=== PATIENT | male | born 1955 | race Caucasian/White ===

== ENCOUNTER 2017-05-19 09:07 | Outpatient (RCR) | payer OTHER ==
[~2017-05-19 09:07] MED LIST: ALLOPURINOL300 MG PO; ATENOLOL25 MG PO; AVAPRO
[2017-08-15] MEDS ORDERED: NORVASC 5MG5 MG/TAB PO (13:08)
[2017-08-15] MEDS ORDERED: ZYLOPRIM 100MG100 MG PO (13:08)
[2017-08-15] MEDS ORDERED: COZAAR100 MG PO (13:09)
[2017-08-15] MEDS ORDERED: GLUCOPHAGE500 MG/TAB PO (13:10)
[2017-08-15] MEDS ORDERED: BYSTOLIC20 MG PO (13:10)
[2017-08-15] MEDS ORDERED: ZOLOFT 50MG50 MG PO (13:11)
[2017-08-15] MEDS ORDERED: ZOCOR 10MG10 MG PO (13:12)
[2017-08-15] MEDS ORDERED: SINGULAIR 110 MG/TAB PO (13:13)
[2017-08-15] MEDS ORDERED: MULTIPLE VITAMI1 CAP PO (13:13)
[2017-08-15] MEDS ORDERED: ASPIRIN 81M81 MG/TA2 PO (13:15)
[2017-08-15] MEDS ORDERED: ALEVE 220MG220 MG PO (13:16)
[2017-08-15] MEDS ORDERED: TYLENOL 8 HR PO (13:17)
== END 2017-08-14 | disposition home or self-care (01) ==
LOC: WSOH
DX: S09.90XA Unspecified injury of head, initial encounter (principal); F07.81 Postconcussional syndrome; E11.9 Type 2 diabetes mellitus without complications; I10 Essential (primary) hypertension; W22.8XXA Striking against or struck by other objects, initial encounter; Y99.0 Civilian activity done for income or pay; Z79.84 Long term (current) use of oral hypoglycemic drugs; Z79.899 Other long term (current) drug therapy

== ENCOUNTER → 2017-07-20 | Outpatient (CLI) | payer OTHER | LOC: COL.RAD 08:03 | DX: N20.0 Calculus of kidney (principal); M46.86 Other specified inflammatory spondylopathies, lumbar region; M51.26 Other intervertebral disc displacement, lumbar region | CPT/HCPCS: Q9967 ==

== ENCOUNTER 2017-08-15 12:02 | Day surgery (SDC) | payer OTHER ==
[~2017-08-15] VITALS: Ht 177.8 cm; Wt 121.1 kg
[2017-08-15 12:22] VITALS: BP 137/91; PULSE 57; TEMP 98.3
[2017-08-15] MEDS ORDERED: ZYLOPRIM 100MG100 MG PO (13:08)
[2017-08-15] MEDS ORDERED: NORVASC 5MG5 MG/TAB PO (13:08)
[2017-08-15] MEDS ORDERED: COZAAR100 MG PO (13:09)
[2017-08-15] MEDS ORDERED: GLUCOPHAGE500 MG/TAB PO (13:10)
[2017-08-15] MEDS ORDERED: BYSTOLIC20 MG PO (13:10)
[2017-08-15] MEDS ORDERED: ZOLOFT 50MG50 MG PO (13:11)
[2017-08-15] MEDS ORDERED: ZOCOR 10MG10 MG PO (13:12)
[2017-08-15] MEDS ORDERED: SINGULAIR 110 MG/TAB PO (13:13)
[2017-08-15] MEDS ORDERED: MULTIPLE VITAMI1 CAP PO (13:13)
[2017-08-15] MEDS ORDERED: ASPIRIN 81M81 MG/TA2 PO (13:15)
[2017-08-15] MEDS ORDERED: ALEVE 220MG220 MG PO (13:16)
[2017-08-15] MEDS ORDERED: TYLENOL 8 HR PO (13:17)
[2017-08-15 14:15] VITALS: BP 121/71; PULSE 55; TEMP 97.2
[2017-08-15 14:30] VITALS: BP 115/71; PULSE 66
[2017-08-15 14:45] VITALS: BP 114/74; PULSE 52
== END 2017-08-15 15:30 | disposition home or self-care (01) ==
LOC: SDCO 12:02
DX: Z12.11 Encounter for screening for malignant neoplasm of colon (principal); K64.0 First degree hemorrhoids; K44.9 Diaphragmatic hernia without obstruction or gangrene; K29.30 Chronic superficial gastritis without bleeding; K26.7 Chronic duodenal ulcer without hemorrhage or perforation
CPT/HCPCS: 43239; G0121; J2250; J3010; J7030

== ENCOUNTER → 2019-07-16 | Outpatient (CLI) | payer BC ==
[~2019-07-16] MED LIST changes: +ALEVE 220MG220 MG PO; +ASPIRIN 81M81 MG/TA2 PO; +BYSTOLIC20 MG PO; +COZAAR100 MG PO; +GLUCOPHAGE500 MG/TAB PO; +MULTIPLE VITAMI1 CAP PO; +NORVASC 5MG5 MG/TAB PO; +SINGULAIR 110 MG/TAB PO; +TYLENOL 8 HR PO; +ZOCOR 10MG10 MG PO; +ZOLOFT 50MG50 MG PO; +ZYLOPRIM 100MG100 MG PO
== END ==
LOC: MHCPAIN 13:10
DX: M47.812 Spondylosis without myelopathy or radiculopathy, cervical region (principal); M54.2 Cervicalgia; M54.12 Radiculopathy, cervical region; G89.29 Other chronic pain
CPT/HCPCS: G0463

== ENCOUNTER 2019-08-30 10:00 | Outpatient (RCR) | payer BC | END 2019-09-19 10:14 | disposition home or self-care (01) | LOC: WSC 10:00 | DX: M47.22 Other spondylosis with radiculopathy, cervical region (principal) ==